=== PATIENT | female | born 1990 | race Caucasian/White ===

== ENCOUNTER 2016-04-30 09:05 | Emergency (ER) | payer MEDICAID ==
[~2016-04-30] VITALS: Ht 157.5 cm; Wt 79.5 kg
[~2016-04-30 09:05] MED LIST: BCP TD; DROSPIRENONE; FLAGYL500 MG PO; FLOXIN OTIC DROP5 ML OT; LORTAB 5/500 501 TAB PO; MACROBID 1100 MG/CAP PO; MOTRIN 600600 MG/TAB PO; MULTI VITAMINS1 TAB PO; NO HOME MEDICATIONS; NORCO 325 MG-51 TAB PO; OMNICEF 300MG300 MG PO; PERCOCET 325 MG1 TA2 PO; PHENERGAN 25 TA25 MG PO; PRENATAL1 TA3 PO; SINGULAIR 110 MG/TAB; ZOFRAN 4MG T4 MG/TAB PO; ZYRTEC-D 5 MG-11 TER PO
[2016-04-30] MEDS ORDERED: PRENATAL PO (09:13)
[2016-04-30] MEDS ORDERED: DICLEGIS PO (09:13)
[2016-04-30 09:50] LABS: BASO % 0.4 % (0.0-2.0); EOS # 0.1 (0.0-0.7); EOS % 0.9 % (0-4.0); GRAN # 9.9 (1.4-6.5); GRAN % 86.3 % (42.2-75.2); HEMATOCRIT 40.6 % (37.0-47.0); HEMOGLOBIN 14.4 g/dl (12.5-16.0); LYMPH # 0.7 (1.2-3.4); MEAN CELL VOLUME 85 fl (80.0-100.0); MEAN CORPUSCULAR HEMOGLOBIN 30 pg (27.0-31.0); MEAN CORPUSCULAR HGB CONC 36 g/dl (33.0-37.0); MONO # 0.7 (0.1-0.6); PLATELET COUNT 236 K/mm3 (130-400); RED BLOOD COUNT 4.78 M/mm3 (4.10-5.30); REDCELL DISTRIBUTION WIDTH-CV 12.1 % (11.5-14.5); WHITE BLOOD COUNT 11.4 K/mm3 (4.8-10.8)
[2016-04-30 09:54] LABS: PH 7 (5-8); SQUAMOUS EPITHELIAL 0-2 /hpf; URINE APPEARANCE Hazy; URINE BACTERIA None Seen /hpf; URINE BILIRUBIN Negative (NEGATIVE); URINE BLOOD Negative (NEGATIVE); URINE COLOR Yellow; URINE GLUCOSE Negative (NEGATIVE); URINE KETONE 1+ (NEGATIVE); URINE RBC 0-2 /hpf; URINE UROBILINOGEN Negative (NEGATIVE); URINE WBC 0-2 /hpf
[2016-04-30 10:03] LABS: ADJUSTED CALCIUM 9.6 mg/dL (8.4-10.2); BILIRUBIN,TOTAL 1.4 mg/dL (0.0-1.0); CALCIUM 9.6 mg/dL (8.4-10.2); CREATININE, serum 0.65 mg/dL (0.52-1.25); POTASSIUM 3.7 mmol/L (3.4-5.0); TOTAL PROTEIN 7.6 gm/dL (6.4-8.2)
[2016-04-30 10:04] LABS: INFLUENZA B NEGATIVE
[2016-04-30 11:25] VITALS: BP 96/55; PULSE 77; TEMP 98.5
== END 2016-04-30 11:27 | disposition home or self-care (01) ==
LOC: COL.ER 09:05
PROVIDERS: Family Medicine
DX: O99.612 Diseases of the digestive system complicating pregnancy, second trimester (principal); Z3A.14 14 weeks gestation of pregnancy; K52.9 Noninfective gastroenteritis and colitis, unspecified
CPT/HCPCS: J2550; J7030

== ENCOUNTER 2016-05-31 05:09 | Emergency (ER) | payer MEDICAID ==
[~2016-05-31] VITALS: Ht 157.5 cm; Wt 79.1 kg
[~2016-05-31 05:09] MED LIST changes: +DICLEGIS PO; +PRENATAL PO
[2016-05-31 05:12] VITALS: BP 112/81; TEMP 97.5
[2016-05-31 06:08] LABS: BASO % 0.3 % (0.0-2.0); EOS # 0.1 (0.0-0.7); EOS % 0.7 % (0-4.0); GRAN # 11.4 (1.4-6.5); GRAN % 87.2 % (42.2-75.2); HEMOGLOBIN 14.1 g/dl (12.5-16.0); LYMPH # 0.9 (1.2-3.4); LYMPH % 6.6 % (20.0-51.0); MEAN CELL VOLUME 87 fl (80.0-100.0); MEAN CORPUSCULAR HEMOGLOBIN 31 pg (27.0-31.0); MEAN CORPUSCULAR HGB CONC 35 g/dl (33.0-37.0); MEAN PLATELET VOLUME 10.4 fl (7.4-10.4); MONO # 0.6 (0.1-0.6); MONO % 4.7 % (1.7-9.3); PLATELET COUNT 212 K/mm3 (130-400); REDCELL DISTRIBUTION WIDTH-CV 12.6 % (11.5-14.5); WHITE BLOOD COUNT 13.1 K/mm3 (4.8-10.8)
[2016-05-31 06:21] LABS: ADJUSTED CALCIUM 9.4 mg/dL (8.4-10.2); BILIRUBIN,TOTAL 1.4 mg/dL (0.0-1.0); CALCIUM 9.4 mg/dL (8.4-10.2); CREATININE, serum 0.66 mg/dL (0.52-1.25); POTASSIUM 3.9 mmol/L (3.4-5.0); TOTAL PROTEIN 7.6 gm/dL (6.4-8.2)
[2016-05-31 06:21] LABS: PH 7 (5-8); SQUAMOUS EPITHELIAL 0-2 /hpf; URINE APPEARANCE Cloudy; URINE BACTERIA Rare /hpf; URINE BILIRUBIN Negative (NEGATIVE); URINE BLOOD Negative (NEGATIVE); URINE COLOR Yellow; URINE GLUCOSE Negative (NEGATIVE); URINE KETONE 1+ (NEGATIVE); URINE RBC 0-2 /hpf; URINE UROBILINOGEN Negative (NEGATIVE)
[2016-05-31] MEDS ORDERED: PHENERGAN 25 TA25 MG PO (06:57)
[2016-05-31] MEDS ORDERED: PHENERGAN25 MG RC (06:57)
[2016-05-31 07:35] VITALS: PULSE 87
== END 2016-05-31 08:06 | disposition home or self-care (01) ==
LOC: COL.ER 05:09
PROVIDERS: Emergency Medicine
DX: O99.89 Other specified diseases and conditions complicating pregnancy, childbirth and the puerperium (principal); R11.10 Vomiting, unspecified; R19.7 Diarrhea, unspecified; Z3A.19 19 weeks gestation of pregnancy
CPT/HCPCS: J2550; J7030

== ENCOUNTER 2016-09-07 05:43 | Outpatient (CLI) | payer MEDICAID ==
[~2016-09-07] VITALS: Ht 160 cm; Wt 83.6 kg
[~2016-09-07 05:43] MED LIST changes: +PHENERGAN25 MG RC
[2016-09-07 05:45] VITALS: BP 124/74; PULSE 103; TEMP 98.2
[2016-09-07 06:15] VITALS: BP 124/74; PULSE 103; TEMP 98.2
[2016-09-07 07:15] VITALS: BP 129/72; PULSE 90
[2016-09-07 07:30] LABS: PH 8 (5-8); SQUAMOUS EPITHELIAL 0-2 /hpf; URINE APPEARANCE Clear; URINE BACTERIA None Seen /hpf; URINE BILIRUBIN Negative (NEGATIVE); URINE BLOOD Negative (NEGATIVE); URINE COLOR Yellow; URINE GLUCOSE Negative (NEGATIVE); URINE KETONE 1+ (NEGATIVE); URINE RBC None Seen /hpf; URINE UROBILINOGEN Negative (NEGATIVE); URINE WBC 0-2 /hpf
[2016-09-07 07:35] LABS: ADJUSTED CALCIUM 8.8 mg/dL (8.4-10.2); ALBUMIN 3.4 gm/dL (3.5-5.0); BILIRUBIN,TOTAL 1.1 mg/dL (0.0-1.0); CALCIUM 8.3 mg/dL (8.4-10.2); CREATININE, serum 0.61 mg/dL (0.52-1.25); POTASSIUM 3.4 mmol/L (3.4-5.0); TOTAL PROTEIN 6.4 gm/dL (6.4-8.2)
[2016-09-07 07:37] LABS: BASO % 0.4 % (0.0-2.0); EOS # 0.1 (0.0-0.7); EOS % 0.8 % (0-4.0); GRAN # 9.5 (1.4-6.5); HEMOGLOBIN 12.3 g/dl (12.5-16.0); LYMPH # 0.7 (1.2-3.4); LYMPH % 5.9 % (20.0-51.0); MEAN CELL VOLUME 88 fl (80.0-100.0); MEAN CORPUSCULAR HEMOGLOBIN 31 pg (27.0-31.0); MEAN CORPUSCULAR HGB CONC 35 g/dl (33.0-37.0); MEAN PLATELET VOLUME 10.1 fl (7.4-10.4); MONO # 0.8 (0.1-0.6); MONO % 7.2 % (1.7-9.3); PLATELET COUNT 223 K/mm3 (130-400); RED BLOOD COUNT 4.02 M/mm3 (4.10-5.30); REDCELL DISTRIBUTION WIDTH-CV 12.9 % (11.5-14.5); WHITE BLOOD COUNT 11.2 K/mm3 (4.8-10.8)
[2016-09-07 07:38] LABS: HEMATOCRIT 35.5 % (37.0-47.0)
== END 2016-09-07 08:30 | disposition home or self-care (01) ==
LOC: LDRO 05:43 → LDR 05:48 → LDRO 08:30
PROVIDERS: Obstetrics & Gynecology
DX: O26.853 Spotting complicating pregnancy, third trimester (principal); Z3A.33 33 weeks gestation of pregnancy
CPT/HCPCS: OP; J2405

== ENCOUNTER → 2016-10-03 | Outpatient (CLI) | payer MEDICAID ==
[~2016-10-03] VITALS: Ht 160 cm; Wt 84.1 kg
[~2016-10-03] MED LIST changes: +MOTRIN 800800 MG/TAB PO
[2016-10-03 19:30] VITALS: BP 120/72; PULSE 82; TEMP 97.7
[2016-10-03 19:39] VITALS: BP 120/72; PULSE 82; TEMP 97.7
== END ==
LOC: LDRO 19:15
DX: O47.03 False labor before 37 completed weeks of gestation, third trimester (principal); Z3A.36 36 weeks gestation of pregnancy

== ENCOUNTER 2016-10-21 09:36 | Inpatient (IN) | payer MEDICAID ==
[~2016-10-21] VITALS: Ht 160 cm; Wt 87.3 kg
[2016-10-21] VITALS (31 sets, daily range): BP systolic 92–138; BP diastolic 50–82; PULSE 68–115; TEMP 97.2–97.8
[~2016-10-21 09:36] MED LIST changes: -MOTRIN 800800 MG/TAB PO
[2016-10-21 11:00] LABS: BASO % 0.4 % (0.0-2.0); EOS # 0.1 (0.0-0.7); EOS % 0.9 % (0-4.0); GRAN # 7.6 (1.4-6.5); GRAN % 74.8 % (42.2-75.2); HEMATOCRIT 36.6 % (37.0-47.0); HEMOGLOBIN 12.4 g/dl (12.5-16.0); LYMPH # 1.4 (1.2-3.4); LYMPH % 13.8 % (20.0-51.0); MEAN CELL VOLUME 85 fl (80.0-100.0); MEAN CORPUSCULAR HEMOGLOBIN 29 pg (27.0-31.0); MEAN CORPUSCULAR HGB CONC 34 g/dl (33.0-37.0); MONO # 0.9 (0.1-0.6); MONO % 9.2 % (1.7-9.3); PLATELET COUNT 179 K/mm3 (130-400); RED BLOOD COUNT 4.33 M/mm3 (4.10-5.30); REDCELL DISTRIBUTION WIDTH-CV 13.4 % (11.5-14.5); WHITE BLOOD COUNT 10.1 K/mm3 (4.8-10.8)
[2016-10-21] MEDS ORDERED: PERCOCET 325 MG1 TA2 PO (11:27)
[2016-10-21] MEDS ORDERED: MOTRIN 800800 MG/TAB PO (11:27)
[2016-10-22 01:50] VITALS: BP 118/61; PULSE 74; TEMP 97.6
[2016-10-22 05:20] VITALS: BP 114/81; PULSE 65; TEMP 97.6
[2016-10-22 09:03] VITALS: BP 122/82; PULSE 91; TEMP 97.7
[2016-10-22 16:09] VITALS: BP 119/80; PULSE 77; TEMP 97.5
[2016-10-22 19:15] VITALS: BP 124/80; PULSE 82; TEMP 98.1
[2016-10-23 07:45] VITALS: BP 116/68; PULSE 72; TEMP 98.2
== END 2016-10-23 14:20 | disposition home or self-care (01) | DRG 775 ==
LOC: LDR 10:05 → OB 20:00
PROVIDERS: Obstetrics & Gynecology
PROC: 10E0XZZ Delivery of Products of Conception, External Approach (ICD-10-PCS; principal; 2016-10-21)
PROC: 3E033VJ Introduction of Other Hormone into Peripheral Vein, Percutaneous Approach (ICD-10-PCS; 2016-10-21)
DX: O99.824 Streptococcus B carrier state complicating childbirth (principal); O69.81X0 Labor and delivery complicated by cord around neck, without compression, not applicable or unspecified; O66.0 Obstructed labor due to shoulder dystocia; Z3A.39 39 weeks gestation of pregnancy; Z37.0 Single live birth
CPT/HCPCS: J1200; J2405; J2590; J3370; J7050; J7120

== ENCOUNTER 2020-11-12 06:19 | Inpatient (IN) | payer MEDICAID ==
[2020-11-12] VITALS (43 sets, daily range): BP systolic 92–148; BP diastolic 50–91; PULSE 66–113; TEMP 97.5–98.6
[~2020-11-12] VITALS: Ht 157.5 cm; Wt 97.7 kg
[~2020-11-12 06:19] MED LIST changes: +MOTRIN 800800 MG/TAB PO
--- NOTE | 2020-11-12 06:30 | NUR ---
0630- Pt ambulatory onto unit. G5L3 and 38 and /. Shown to room and provided a clean gown to put on. 0633- EFM and TOCO attached to pt. Pt denies LOF, VB, or feeling regular contractions. Positive movement per pt. Consents explained and provided. 0700- IV started in . LR running.
[2020-11-12] MEDS ORDERED: ZOFRAN 4MG T4 MG/TAB PO (07:32)
[2020-11-12] MEDS ORDERED: ZOLOFT 25MG25 MG PO (07:32)
[2020-11-12] MEDS ORDERED: FIORICET 325 MG1 TA1 PO (07:34)
[2020-11-12] MEDS ORDERED: PRILOTC (07:34)
[2020-11-12] MEDS ORDERED: ASPIRIN 81M81 MG/TA2 PO (07:36)
[2020-11-12 07:43] LABS: BASO % 0.3 % (0.0-2.0); EOS # 0.1 (0.0-0.7); EOS % 1.1 % (0-4.0); LYMPH # 1.5 (1.2-3.4); LYMPH % 12.6 % (20.0-51.0); MEAN CELL VOLUME 89 fl (80.0-100.0); MEAN CORPUSCULAR HEMOGLOBIN 29 pg (27.0-31.0); MEAN CORPUSCULAR HGB CONC 33 g/dl (33.0-37.0); MEAN PLATELET VOLUME 10.4 fl (7.4-10.4); MONO % 8.4 % (1.7-9.3); PLATELET COUNT 184 K/mm3 (130-400); RED BLOOD COUNT 4.09 M/mm3 (4.10-5.30); REDCELL DISTRIBUTION WIDTH-CV 14.4 % (11.5-14.5)
[2020-11-12 07:45] LABS: HEMATOCRIT 36.2 % (37.0-47.0)
--- NOTE | 2020-11-12 08:10 | NUR ---
0810- Pt sitting up on edge of bed for epidural placement. Difficulty tracing FHR due to maternal position. This RN at bedside with pt, repositioning moniotr throughout procedure.
--- NOTE | 2020-11-12 08:15 | NUR ---
0815- Dr. Alcantara on unit to see pt and break water. Pt is getting their epidural at this time. MD stays on unit until end of procedure. 0830- Dr. Alcantara into pts room to break water. AROM with clear fluid. No foul odor noted. SVE /-3 per provider. No further orders at this time.
--- NOTE | 2020-11-12 08:40 | NUR ---
0840- contractions not reading with TOCO due to repositioning of pt. This RN in to readjust.
--- NOTE | 2020-11-12 10:00 | NUR ---
1000- Difficulty tracing contactions due to maternal positon. RejiRN at bedside with pt. Repositions TOCO.
--- NOTE | 2020-11-12 11:15 | NUR ---
1115- Pt complaining of L hip/pelvic pain. Has pressed BLACK OFF WORKER button x2. SVE per this RN /-3. Anesthesia into room to dose epidural to help with pain. 1125- Pt states they feel like their "heart is racing." RN into see pt. Vitals 98/55 and HR 124. Rechecked vitals and they were 104/58 and HR 85. Fan turned on, cool wash cloth provided, VS monitored. RN stayed at bedside with pt. 1130- Zofran administered due to continued nausea and vomiting of pt. 1146- Blood glucose 67. [place] juice and crackers provided.
--- NOTE | 2020-11-12 11:56 | NUR ---
1156-Ephedrine given per protocol and per JARVIS Bates order for patient report of " I dont't feel good and nauseated" Patients BP 92/51, HR 93. 1200-Maternal BP 111/61 HR 87, Dr. Alcantara on unit. Rechecked BG 76 after juice and snack. SVE per MD 5-80/-2. Patient continues to feel nauseated and pale in color. Oxygen sat 99-100% on room air. oxymask PRN for comfort at 10L via oxymask. MD orders to conintue to monitor and call call centre supervisor MD for concerns or delivery if needed before she returns to unit after upcoming surgery. 1210-Patient continues to feel nauseated and have pale color. VSS BG taken 65-treated orally with juice and crackers BG up to 76 with recheck. 1230-Dr. Alcantara called to update SVE 8-80/-2 and feeling pressure with contractions no answer. Dr. Jack is front desk supervisor and on unit. reviewed patients status. Orders to continue to monitor if BG is imporoved with oral and VSS. 1240-Dr. Alcantara out of surgery updated with patient /-1. In route to unit
--- NOTE | 2020-11-12 13:10 | NUR ---
1310-Dr. Alcantara on unit. Reviwes FHR monitor. 1313-Dr. Alcantara in to see patient and reports "patient is complete and OP" Orders to break down bed for pushing efforts. 1318-Paitent begins pushing with MD at bedside. Moves vertex minimally. Williamstenshira reports "I feel sick" Patient continues to push with doctor. Difficulty maintaining continuos FHR tracing with pushing efforts. RN adjusting EFM. Audible decels in FHR down to 80bpm. 1328-Dr. Alcantara places vacuum on and patient continues to push with contraction. MD releases vacuum in between pushing efforts x3 attempts. 1331-Dr. Alcantara unable to assist with vaccum and patient becoming very "tired and I just can't do it" Patient reports " I am going to pass out." All VSS. One last pushing effort with MD and no movement of vertex. Doctor and patient plan for c/s delivery. 1332-Patient off EFM and taken to OR via bed.
[2020-11-12] MEDS ORDERED: PERCOCET 325 MG1 TA2 PO (19:27)
[2020-11-12] MEDS ORDERED: MOTRIN 800800 MG/TAB PO (19:27)
[2020-11-13 01:00] VITALS: BP 127/70; PULSE 80; TEMP 98
--- NOTE | 2020-11-13 01:00 | NUR ---
PT REPORTS FULL SENSATION TO BLE. ABLE TO RAISE AND HOLD LEGS X5 SECONDS. FUNDUS FIRM AND LOCHIA SCANT/NO CLOTS. ASSISTED TO EDGE OF BED TO ALLOW LEGS TO DANGLE. STANDS AND AMBULATES WITH SBA/FULL WEIGHT BEARING. DENIES DIZZINESS, REPORTS PAIN IS MANAGEABLE. ABDOMINAL BINDER ON. RABIA DALE'D. PATIENT ASSISTED WITH [facility] AND INTO CLEAN GOWN/UNDERWEAR/NEW PAD. REQUESTING TO AMBULATE "IT FEELS SO GOOD TO BE UP." THIS NURSE AMBULATES ALONGSIDE PT IN HALLWAY TO GET MORE ICE WATER, THEN BACK TO ROOM. STRONG STEADY GAIT NOTED. BABY TO NURSERY FOR VITAL SIGNS AND ASSESSMENT. FAMILY REQUESTING BABY REMAIN IN NURSERY UNTIL 0230. PT ASSISTED BACK INTO BED. DENIES FURTHER NEEDS. CALL LIGHT WITHIN REACH.
[2020-11-13 07:30] VITALS: BP 123/67; PULSE 97; TEMP 98
[2020-11-13 16:00] VITALS: BP 132/86; PULSE 95; TEMP 97.6
[2020-11-13 19:15] VITALS: BP 128/81; PULSE 85; TEMP 97.7
[2020-11-14 07:49] VITALS: BP 122/68; PULSE 74; TEMP 98.1
== END 2020-11-14 14:00 | disposition home or self-care (01) | DRG 788 ==
LOC: OB 06:19 → LDR 06:19 → OB 15:30
PROVIDERS: ADMIT Obstetrics & Gynecology
PROC: 10D00Z1 Extraction of Products of Conception, Low, Open Approach (ICD-10-PCS; principal; 2020-11-12)
PROC: 0KQM0ZZ Repair Perineum Muscle, Open Approach (ICD-10-PCS; 2020-11-12)
PROC: 10907ZC Drainage of Amniotic Fluid, Therapeutic from Products of Conception, Via Natural or Artificial Opening (ICD-10-PCS; 2020-11-12)
PROC: 3E033VJ Introduction of Other Hormone into Peripheral Vein, Percutaneous Approach (ICD-10-PCS; 2020-11-12)
DX: O24.420 Gestational diabetes mellitus in childbirth, diet controlled (principal); O75.81 Maternal exhaustion complicating labor and delivery; O99.214 Obesity complicating childbirth; O99.344 Other mental disorders complicating childbirth; F32.9 Major depressive disorder, single episode, unspecified; F41.9 Anxiety disorder, unspecified; O75.89 Other specified complications of labor and delivery; O77.0 Labor and delivery complicated by meconium in amniotic fluid; O76 Abnormality in fetal heart rate and rhythm complicating labor and delivery; Z3A.38 38 weeks gestation of pregnancy; Z37.0 Single live birth; Z86.16 Personal history of COVID-19
CPT/HCPCS: J0330; J0690; J2210; J2370; J2400; J2405; J2590; J2704; J3010; J7120

== ENCOUNTER → 2020-11-25 | Outpatient (CLI) | payer MEDICAID ==
[~2020-11-25] MED LIST changes: +ASPIRIN 81M81 MG/TA2 PO; +FIORICET 325 MG1 TA1 PO; +PRILOTC; +ZOLOFT 25MG25 MG PO
== END ==
LOC: ZCOL.LAB 16:07
DX: O86.00 Infection of obstetric surgical wound, unspecified (principal)

== ENCOUNTER → 2020-12-23 | Outpatient (CLI) | payer MEDICAID | LOC: ZCOL.LAB 17:52 | DX: O86.00 Infection of obstetric surgical wound, unspecified (principal); Z3A.00 Weeks of gestation of pregnancy not specified ==

== ENCOUNTER 2021-01-10 21:26 | Emergency (ER) | payer MEDICAID ==
[~2021-01-10] VITALS: Ht 157.5 cm; Wt 86.4 kg
[2021-01-10 21:35] VITALS: TEMP 98.1
[2021-01-10 22:21] LABS: BASO # 0.1 K/mm3 (0.0-0.2); BASO % 0.7 % (0.0-2.0); EOS # 0.5 K/mm3 (0.0-0.7); GRAN # 5.3 K/mm3 (1.4-6.5); GRAN % 59.4 % (42.2-75.2); HEMATOCRIT 38.6 % (37.0-47.0); HEMOGLOBIN 12.7 g/dl (12.5-16.0); LYMPH # 2.4 K/mm3 (1.2-3.4); LYMPH % 26.8 % (20.0-51.0); MEAN CELL VOLUME 85 fl (80.0-100.0); MEAN CORPUSCULAR HEMOGLOBIN 28 pg (27.0-31.0); MEAN CORPUSCULAR HGB CONC 33 g/dl (33.0-37.0); MEAN PLATELET VOLUME 9.3 fl (7.4-10.4); MONO # 0.6 K/mm3 (0.1-0.6); MONO % 6.9 % (1.7-9.3); PLATELET COUNT 287 K/mm3 (130-400); RED BLOOD COUNT 4.53 M/mm3 (4.10-5.30); REDCELL DISTRIBUTION WIDTH-CV 13.6 % (11.5-14.5)
[2021-01-10 22:21] LABS: COLLECTION METHOD CLEAN CATCH
[2021-01-10 22:26] LABS: MUCOUS Present /lpf; PH 5 (5-8); SQUAMOUS EPITHELIAL 0-2 /hpf; URINE APPEARANCE Clear; URINE BACTERIA None Seen /hpf; URINE BILIRUBIN Negative (NEGATIVE); URINE BLOOD Negative (NEGATIVE); URINE COLOR Yellow; URINE GLUCOSE Negative (NEGATIVE); URINE KETONE Negative (NEGATIVE); URINE LEUKOCYTE ESTERASE Negative (NEGATIVE); URINE NITRATE Negative (NEGATIVE); URINE PROTEIN(semi-quant) Negative (NEGATIVE); URINE UROBILINOGEN Negative (NEGATIVE)
[2021-01-10 22:49] LABS: ALBUMIN 3.9 gm/dL (3.5-5.0); BILIRUBIN,TOTAL 0.3 mg/dL (0.2-1.2); CALCIUM 9.4 mg/dL (8.4-10.2); POTASSIUM 4.6 mmol/L (3.5-4.5)
[2021-01-11] MEDS ORDERED: NORCO 325 MG-51 TAB PO (01:30)
[2021-01-11 01:54] VITALS: BP 120/76; PULSE 58
== END 2021-01-11 01:52 | disposition home or self-care (01) ==
LOC: COL.ER 21:26
PROVIDERS: Personal Emergency Response Attendant
DX: O90.89 Other complications of the puerperium, not elsewhere classified (principal); R10.9 Unspecified abdominal pain; R51.9 Headache, unspecified; F41.9 Anxiety disorder, unspecified; Z79.899 Other long term (current) drug therapy
CPT/HCPCS: J1790; J1885; J2270; J2405; J7030; Q9967

== ENCOUNTER 2021-01-18 10:37 | Emergency (ER) | payer MEDICAID ==
[~2021-01-18] VITALS: Ht 157.5 cm; Wt 86.4 kg
[2021-01-18 11:13] VITALS: BP 156/101; PULSE 81; TEMP 98.2
== END 2021-01-18 11:38 | disposition left against medical advice (07) ==
LOC: COL.ER 10:37
DX: R51.9 Headache, unspecified (principal)

== ENCOUNTER → 2021-01-22 | Outpatient (CLI) | payer OTHER, MEDICAID | LOC: COL.RAD 08:44 | DX: H46.9 Unspecified optic neuritis (principal) | CPT/HCPCS: A9585 ==

== ENCOUNTER → 2021-02-09 | Outpatient (CLI) | payer OTHER, MEDICAID ==
[2021-02-09 10:33] LABS: BASO # 0.1 K/mm3 (0.0-0.2); EOS # 0.5 K/mm3 (0.0-0.7); EOS % 5.8 % (0-4.0); GRAN # 6.3 K/mm3 (1.4-6.5); GRAN % 67.4 % (42.2-75.2); HEMATOCRIT 41.4 % (37.0-47.0); HEMOGLOBIN 14.2 g/dl (12.5-16.0); LYMPH # 1.9 K/mm3 (1.2-3.4); LYMPH % 20.2 % (20.0-51.0); MEAN CELL VOLUME 81 fl (80.0-100.0); MEAN CORPUSCULAR HEMOGLOBIN 28 pg (27.0-31.0); MEAN CORPUSCULAR HGB CONC 34 g/dl (33.0-37.0); MEAN PLATELET VOLUME 9.1 fl (7.4-10.4); MONO # 0.5 K/mm3 (0.1-0.6); PLATELET COUNT 335 K/mm3 (130-400); RED BLOOD COUNT 5.11 M/mm3 (4.10-5.30); REDCELL DISTRIBUTION WIDTH-CV 13.6 % (11.5-14.5)
[2021-02-09 10:44] LABS: C-REACTIVE PROTEIN 0.46 mg/dL (0.00-0.50)
[2021-02-09 10:53] LABS: ERYTHROCYTE SEDIMENTATION RATE 2 mm/hr (0-20)
[2021-02-10 02:30] LABS: LYME DISEASE ANTIBODIES Negative (Negative)
[2021-02-10 13:01] LABS: ANA SCREEN with REFLEX Negative (Negative)
[2021-02-10 17:54] LABS: TB GOLD INTERPRETATION Negative (Negative)
[2021-02-12 08:44] LABS: ANGIOTENSIN CONVERTING ENZYME 32 U/L (16 - 85)
[2021-02-12 13:57] LABS: SPOTTED FEVER IGG ANTIBODY <1:64 (<1:64)
== END ==
LOC: COL.LAB 09:33
PROVIDERS: Ophthalmology
DX: H46.9 Unspecified optic neuritis (principal); H46.02 Optic papillitis, left eye; H53.433 Sector or arcuate defects, bilateral